=== PATIENT | male | born 1985 | race Native Hawaiian/Other Pacific Islander ===

== ENCOUNTER 2019-11-07 13:00 | Emergency (ER) | payer OTHER ==
--- NOTE | 2019-11-07 13:03 | Event Note ---
ED Screening Note ED Screening Note: facial and finger laceration after ground level fall at work This initial assessment/diagnostic orders/clinical plan/treatment(s) is/are subject to change based on patients health status, clinical progression and re- assessment by fellow clinical providers in the ED. Further treatment and workup at subsequent clinical providers discretion. Patient/guardian urged not to elope from the ED as their condition may be serious if not clinically assessed and managed. Initial orders include: to treatment room
[2019-11-07 13:10] VITALS: BP 128/87
[2019-11-07] MEDS ORDERED: oxyCODONE /ACETAMINOPHEN 5-325MG TAB PO ONE (13:35)
[2019-11-07] MEDS ORDERED: TETANUS,DIPH,PERTUSS(ACELL) VACCINE 0.5 ML SYRINGE IM ONE (13:35)
[2019-11-07] MEDS ORDERED: LIDOCAINE (1%) 10 MG/1 ML VIAL 20 ML MDV INFILTRATI ONE (13:36)
--- NOTE | 2019-11-07 13:51 | Emergency Department Report ---
- General Chief Complaint: Head Injury Stated Complaint: FACE LAC Time Seen by Provider: 11/07/19 13:28 Source: patient, warehouse picker Mode of arrival: Ambulatory Limitations: Language Barrier - History of Present Illness Initial Comments: Patient is a 34-year-old male presents emergency room with complaints of a fall that occurred just prior to arrival. Patient states that he was working outside and was walking down the steps when he fell down the last 2 steps and hit his head against the concrete. He states that he did have a brief episode of loss of consciousness. He is complaining of head pain, neck pain, bilateral middle finger pain. He denies any vision changes, numbness, weakness, any other injury. He has a laceration to his forehead and a skin avulsion to his left middle finger. He denies any chest pain or dizziness prior to the fall. He is unsure of his last tetanus immunization. He denies any past medical history or allergies to medications. [place] interpretation by Aubree, patient telemarketing sales representative - Related Data Previous Rx's Medication Instructions Recorded Last Taken Type Acetaminophen/Codeine [Tylenol 1 tab PO Q6H PRN #7 tab 11/07/19 Unknown Rx /Codeine # 3 tab] Neomycin/Bacitracin/Polymyxinb 1 applicatio TP TID #1 oint...g. 11/07/19 Unknown Rx [Triple Antibiotic Ointment] cephALEXin [Keflex] 500 mg PO BID 7 Days #14 cap 11/07/19 Unknown Rx ED Review of Systems ROS: Stated complaint: FACE LAC Other details as noted in HPI Comment: All other systems reviewed and negative ED Past Medical Hx - Past Medical History Previous Medical History?: No - Surgical History Past Surgical History?: No - Social History Smoking Status: Never Smoker Substance Use Type: None - Medications Home Medications: Home Medications Medication Instructions Recorded Confirmed Last Taken Type Acetaminophen/Codeine [Tylenol 1 tab PO Q6H PRN #7 tab 11/07/19 Unknown Rx /Codeine # 3 tab] Neomycin/Bacitracin/Polymyxinb 1 applicatio TP TID #1 oint...g. 11/07/19 Unknown Rx [Triple Antibiotic Ointment] cephALEXin [Keflex] 500 mg PO BID 7 Days #14 cap 11/07/19 Unknown Rx ED Physical Exam - General Limitations: No Limitations General appearance: alert, in no apparent distress - Head Head exam: Present: other (6 cm laceration to the left forehead in a tripod sha pe, no muscle/tendon involvement, no active bleeding, no visualized foreign body ) - Eye Eye exam: Present: normal appearance, PERRL, EOMI. Absent: periorbital swelling, periorbital tenderness - ENT ENT exam: Present: mucous membranes moist - Neck Neck exam: Present: normal inspection, tenderness (mild midline c-spine ttp, no step offs, no deformities), full ROM - Respiratory Respiratory exam: Present: normal lung sounds bilaterally. Absent: respiratory distress, wheezes, rales, rhonchi, stridor, chest wall tenderness, accessory muscle use, decreased breath sounds, prolonged expiratory - Cardiovascular Cardiovascular Exam: Present: regular rate, normal rhythm, normal heart sounds. Absent: systolic murmur, diastolic murmur, rubs, gallop - Extremities Exam Extremities exam: Present: other (edema and ttp to the bilateral middle fingers, FROM of the bilateral fingers and hands, discomfort with flexion of the bilateral middle fingers, left middle finger has skin avulsion present on the anterior surface, no bleeding, unable to repair, neurovascularly intact throughout) - Back Exam Back exam: Present: normal inspection, full ROM. Absent: paraspinal tenderness, vertebral tenderness - Neurological Exam Neurological exam: Present: alert, oriented X3, CN II-XII intact, normal gait. Absent: motor sensory deficit - Psychiatric Psychiatric exam: Present: normal affect, normal mood - Skin Skin exam: Present: warm ED Course Vital Signs 11/07/19 11/07/19 13:05 13:09 Temperature 98.5 F 98.5 F Pulse Rate 92 H Respiratory 20 Rate Blood Pressure 128/87 [Left] O2 Sat by Pulse 100 Oximetry - Laceration /Wound Repair Head Wound Location: face (left forehead above the eyebrow) Wound Length (cm): 6 Wound's Depth, Shape: irregular (tripod shape) Wound Explored: clean Irrigated w/ Saline (ccs): 500 Betadine Prep?: Yes Anesthesia: 1% Lidocaine Volume Anesthetic (ccs): 9 Wound Debrided: extensive Wound Repaired With: sutures, Steri-strips, Dermabond Layer Closure?: Yes Deep Layer Suture Size/Type: 4:0 (vicryl) Number Deep Layer Sutures: 10 Sterile Dressing Applied?: Yes Progress: Wound thoroughly irrigated with saline and scrubbed with Betadine, no muscle or tendon involvement, no foreign body identified, 9 cc of 1% lidocaine without epinephrine used as anesthetic, 4-0 Vicryl used and 8 interrupted subcutaneous stitches placed, 4-0 Vicryl used for subcuticular stitch, 2 running stitches placed, several layers of Dermabond applied, Steri-Strips placed, wound is well approximated, patient tolerated well, no complications, bleeding is controlled, sterile dressing applied ED Medical Decision Making - Radiology Data Radiology results: report reviewed BILATERAL HANDS 3 VIEWS INDICATION: bilateral middle finger pain and edema. COMPARISON: None. IMPRESSION: Perhaps mild soft tissue swelling of both third digits is appreciated. No soft tissue gas or foreign body. Normal bone mineralization. No osseous abnormality or joint pathology is detected. Signer Name: Jayesh Epstein Jr, MD Signed: 11/07/2019 2:27 PM Workstation Name: [id number] Transcribed By: TTR Dictated By: JAYESH EPSTEIN JR, MD Electronically Authenticated By: JAYESH EPSTEIN JR, MD Signed Date/Time: 11/07/19 1427 DD/ 1426 TD/TT: CT CERVICAL SPINE WITHOUT CONTRAST INDICATION: fall, LOC, laceration to forehead. TECHNIQUE: Axial imaging performed through the cervical spine without the use of contrast. Sagittal and coronal reconstructed images were also reviewed. All CT scans at this location are performed using CT dose reduction for ALARA by means of automated exposure control. COMPARISON: None FINDINGS: Alignment: Spinal alignment is normal. Bones: There is no acute osseous abnormality. Mild discogenic DJD is identified at C4-5, C5-6 and C6-7. The remaining disc levels are within normal limits. The facet joints and posterior elements are unremarkable. Soft tissues: No acute or significant incidental soft tissue abnormality. IMPRESSION: No acute abnormality. Mild cervical spondylosis as described. Signer Name: Jayesh Epstein Jr, MD Signed: 11/07/2019 3:31 PM Workstation Name: [id number] Transcribed By: TTR Dictated By: JAYESH EPSTEIN JR, MD Electronically Authenticated By: JAYESH EPSTEIN JR, MD Signed Date/Time: 11/07/19 1531 DD/ 1529 TD/TT: FACIAL CT 11/07/2019 HISTORY: Trauma FINDINGS: CT images of the facial bones were obtained. Images are evaluated in the axial, coronal, and sagittal planes. There is soft tissue swelling associated with scalp laceration in the left lateral forehead region. Underlying osseous structures are intact. Facial osseous structures are normal. Paranasal sinuses are clear. Incidental note is made of a punctate metallic density in the soft tissues overlying the left maxilla, just beneath the left side of nose. This is presumably related to prior injury. IMPRESSION: No evidence of acute osseous injury. Left frontal scalp injury noted. All CT scans at this location are performed using dose reduction to ALARA by means of automated exposure control. Signer Name: Chris Shirley MD Signed: 11/07/2019 3:26 PM Workstation Name: [id number] Transcribed By: RUTHY Dictated By: Chris Shirley MD Electronically Authenticated By: Chris Shirley MD Signed Date/Time: 11/07/19 1526 DD/ 1523 TD/TT: CT HEAD WITHOUT CONTRAST INDICATION / CLINICAL INFORMATION: Fall, head injury, loss of consciousness, laceration to 4 and. TECHNIQUE: Axial imaging performed from the skull apex through the skull base without the use of contrast. Sagittal and coronal reformatted images. All CT scans at this location are performed using CT dose reduction for ALARA by means of automated exposure control. COMPARISON: None available. FINDINGS: CEREBRAL PARENCHYMA: No significant abnormality. No acute territorial infarct. HEMORRHAGE: None. EXTRA-AXIAL SPACES: Normal in size and morphology for the patient's age. VENTRICULAR SYSTEM: Normal in size and morphology for the patient's age. MIDLINE SHIFT OR HERNIATION: None. CEREBELLUM / BRAINSTEM: No significant abnormality. CALVARIUM: No significant abnormality. ORBITS: Normal as visualized. PARANASAL SINUSES / MASTOID AIR CELLS: Normal as visualized. SOFT TISSUES of HEAD: Moderate sized soft tissue laceration is identified in the left frontal region adjacent to the orbital cavity. No significant underlying soft tissue hematoma. No foreign body. ADDITIONAL FINDINGS: None. IMPRESSION: No acute intracranial abnormality. Left frontal soft tissue laceration as described. Signer Name: Jayesh Epstein Jr, MD Signed: 11/07/2019 3:19 PM Workstation Name: [id number] Transcribed By: JESSICA Dictated By: JAYESH EPSTEIN JR, MD Electronically Authenticated By: JAYESH EPSTEIN JR, MD Signed Date/Time: 11/07/191518 DD/ 17 TD/TT: - Medical Decision Making Patient is a 34-year-old male presents emergency room with complaints of a fall that occurred just prior to arrival. Patient states that he was working outside and was walking down the steps when he fell down the last 2 steps and hit his head against the concrete. He states that he did have a brief episode of loss of consciousness. He is complaining of head pain, neck pain, bilateral middle finger pain. He denies any vision changes, numbness, weakness, any other injury. He has a laceration to his forehead and a skin avulsion to his left middle finger. He denies any chest pain or dizziness prior to the fall. He is unsure of his last tetanus immunization. He denies any past medical history or allergies to medications. Vitals are normal. On exam: 6 cm laceration to the left forehead in a tripod shape, no muscle/tendon involvement, no active bleeding, no visualized foreign body, mild midline c-spine ttp, no step offs, no deformities, edema and ttp to the bilateral middle fingers, FROM of the bilateral fingers and hands, discomfort with flexion of the bilateral middle fingers, left middle finger has skin avulsion present on the anterior surface, no bleeding, unable to repair, neurovascularly intact throughout. XR bilateral hands: Perhaps mild soft tissue swelling of both third digits is appreciated. No soft tissue gas or foreign body. Normal bone mineralization. No osseous abnormality or joint pathology is detected. CT cervical spine: No acute abnormality. Mild cervical spondylosis as described. CT head and facial bones: No acute intracranial abnormality. Left frontal soft tissue laceration as described. laceration repaired per procedure note. skin avulsion on left middle finger irrigated and cleaned with betadine and triple antibiotic ointment and dressing applied. pt given tetanus immunization. pt given prescription for abx and pain medication. advised pt Please take medication as prescribed as needed. Do not drive or operate heavy machinery while taking pain medication. Please keep area clean, dry, covered. Please keep current Steri-Strips in place for 2 days then may remove and wash with soap and water. May wash area with soap and water after 2 days. No hot tub, no pool, no soaking in water. Follow-up with a primary care doctor in the next 3 to 5 days for reexamination. Your sutures are absorbable and will dissolve on their own. Return to the emergency room for any new or worsening symptoms. [place] interpretation by Aubree, patient telemarketing sales representative Critical care attestation.: If time is entered above; I have spent that time in minutes in the direct care of this critically ill patient, excluding procedure time. ED Disposition Clinical Impression: Pain of left middle finger, Pain of right middle finger, Neck pain, Avulsion, skin Laceration of forehead Qualifiers: Encounter type: initial encounter Qualified Code(s): S01.81XA - Laceration without foreign body of other part of head, initial encounter Head injury Qualifiers: Encounter type: initial encounter Qualified Code(s): S09.90XA - Unspecified injury of head, initial encounter Disposition: TO HOME OR SELFCARE Is pt being admited?: No Does the pt Need Aspirin: No Condition: Stable Instructions: Laceration (ED), Skin Adhesive Care (ED), Absorbable Suture Care (ED) Additional Instructions: Please take medication as prescribed as needed. Do not drive or operate heavy machinery while taking pain medication. Please keep area clean, dry, covered. Please keep current Steri-Strips in place for 2 days then may remove and wash with soap and water. May wash area with soap and water after 2 days. No hot tub, no pool, no soaking in water. Follow-up with a primary care doctor in the next 3 to 5 days for reexamination. Your sutures are absorbable and will dissolve on their own. Return to the emergency room for any new or worsening symptoms. Por favor, tome los medicamentos segn lo prescrito. No conduzca ni opere maquinaria pesada mientras est tomando analgsicos. Mantenga el na limpia, seca, cubierta. Por favor, mantenga las tiras De Steri-Strips actuales en [place] lugar lynne 2 welch, luego puede retirar y selina con agua y jabn. Puede selina la dominguez con agua y jabn despus de 2 welch. Sin baera de hidromasaje, sin piscina, sin remojo en el agua. Seguimiento con un mdico de atencin primaria en los prximos 3 a 5 welch para el reexamen. Corin suturas son absorbibles y se disolvern por s solas. Regrese a la basilio de emergencias para cualquier sntoma nuevo o que empeore. Prescriptions: cephALEXin [Keflex] 500 mg PO BID 7 Days #14 cap Neomycin/Bacitracin/Polymyxinb [Triple Antibiotic Ointment] 1 applicatio TP TID #1 oint...g. Acetaminophen/Codeine [Tylenol /Codeine # 3 tab] 1 tab PO Q6H PRN #7 tab PRN Reason: Pain , Severe (7-10) Referrals: OBDULIA COWAN MD [Staff Physician] - 3-5 Days [facility] [Provider Group] - 3-5 Days [facility] [Outside] - 3-5 Days [facility] [Outside] - 3-5 Days Time of Disposition: 16:43 Print Language: SAMOAN
--- NOTE | 2019-11-07 14:31 | XRay Report ---
BILATERAL HANDS 3 VIEWS INDICATION: bilateral middle finger pain and edema. COMPARISON: None. IMPRESSION: Perhaps mild soft tissue swelling of both third digits is appreciated. No soft tissue ga s or foreign body. Normal bone mineralization. No osseous abnormality or joint pathology is detected . Signer Name: Jayesh Epstein Jr, MD Signed: 11/07/2019 2:27 PM Workstation Name: [id number]
--- NOTE | 2019-11-07 15:24 | Cat Scan Report ---
CT HEAD WITHOUT CONTRAST INDICATION / CLINICAL INFORMATION: Fall, head injury, loss of consciousness, laceration to 4 and. TECHNIQUE: Axial imaging performed from the skull apex through the skull base without the use of cont rast. Sagittal and coronal reformatted images. All CT scans at this location are performed using CT dose reduction for ALARA by means of automated exposure control. COMPARISON: None available. FINDINGS: CEREBRAL PARENCHYMA: No significant abnormality. No acute territorial infarct. HEMORRHAGE: None. EXTRA-AXIAL SPACES: Normal in size and morphology for the patient's age. VENTRICULAR SYSTEM: Normal in size and morphology for the patient's age. MIDLINE SHIFT OR HERNIATION: None. CEREBELLUM / BRAINSTEM: No significant abnormality. CALVARIUM: No significant abnormality. ORBITS: Normal as visualized. PARANASAL SINUSES / MASTOID AIR CELLS: Normal as visualized. SOFT TISSUES of HEAD: Moderate sized soft tissue laceration is identified in the left frontal region adjacent to the orbital cavity. No significant underlying soft tissue hematoma. No foreign body. ADDITIONAL FINDINGS: None. IMPRESSION: No acute intracranial abnormality. Left frontal soft tissue laceration as described. Signer Name: Jayesh Epstein Jr, MD Signed: 11/07/2019 3:19 PM Workstation Name: [id number]
--- NOTE | 2019-11-07 15:30 | Cat Scan Report ---
FACIAL CT 11/07/2019 HISTORY: Trauma FINDINGS: CT images of the facial bones were obtained. Images are evaluated in the axial, coronal, an d sagittal planes. There is soft tissue swelling associated with scalp laceration in the left lateral forehead region. U nderlying osseous structures are intact. Facial osseous structures are normal. Paranasal sinuses are clear. Incidental note is made of a punctate metallic density in the soft tissues overlying the left maxilla , just beneath the left side of nose. This is presumably related to prior injury. IMPRESSION: No evidence of acute osseous injury. Left frontal scalp injury noted. All CT scans at this location are performed using dose reduction to ALARA by means of automated expos ure control. Signer Name: Chris Shirley MD Signed: 11/07/2019 3:26 PM Workstation Name: [id number]
--- NOTE | 2019-11-07 15:36 | Cat Scan Report ---
CT CERVICAL SPINE WITHOUT CONTRAST INDICATION: fall, LOC, laceration to forehead. TECHNIQUE: Axial imaging performed through the cervical spine without the use of contrast. Sagittal and coronal reconstructed images were also reviewed. All CT scans at this location are performed us ing CT dose reduction for ALARA by means of automated exposure control. COMPARISON: None FINDINGS: Alignment: Spinal alignment is normal. Bones: There is no acute osseous abnormality. Mild discogenic DJD is identified at C4-5, C5-6 and C 6-7. The remaining disc levels are within normal limits. The facet joints and posterior elements are unremarkable. Soft tissues: No acute or significant incidental soft tissue abnormality. IMPRESSION: No acute abnormality. Mild cervical spondylosis as described. Signer Name: Jayesh Epstein Jr, MD Signed: 11/07/2019 3:31 PM Workstation Name: [id number]
[2019-11-07] MEDS ORDERED: NEOMY 3.5 MG/BACIT 400 UNITS/POLY B 5000 UNITS/GM OINT PACKET TP ONE (16:47)
== END 2019-11-07 17:05 | disposition home or self-care (01) ==
LOC: ED 13:00
DX: S01.81XA Laceration without foreign body of other part of head, initial encounter (principal); M54.2 Cervicalgia; M79.645 Pain in left finger(s); M79.644 Pain in right finger(s); W18.09XA Striking against other object with subsequent fall, initial encounter; Y93.89 Activity, other specified; Y99.8 Other external cause status; Y92.89 Other specified places as the place of occurrence of the external cause
CPT/HCPCS: 70450; 70486; 72125; 90471; 90715; A6250